=== PATIENT | male | born 1965 | race Caucasian/White ===

== ENCOUNTER 2018-05-07 01:48 | Emergency (ER) | payer OTHER ==
[~2018-05-07] VITALS: Ht 165.1 cm; Wt 68.2 kg
[~2018-05-07 01:48] MED LIST: FISH OIL 1,0001 EAC7 PO; MULTIVITAMIN1 EAC1 PO
[2018-05-07] MEDS ORDERED: KEFLEX500 MG PO (04:08)
[2018-05-07] MEDS ORDERED: ULTRACET1 TABLET PO (04:09)
[2018-05-07] MEDS ORDERED: MOTRIN600 MG PO (04:09)
[2018-05-07 04:30] VITALS: BP 166/99
== END 2018-05-07 04:31 | disposition home or self-care (01) ==
LOC: EME 01:48
DX: S61.215A Laceration without foreign body of left ring finger without damage to nail, initial encounter (principal); W26.8XXA Contact with other sharp object(s), not elsewhere classified, initial encounter; Y99.0 Civilian activity done for income or pay; Z23 Encounter for immunization; Z88.0 Allergy status to penicillin
CPT/HCPCS: 73140; 99281; 99284; S0020